=== PATIENT | female | born 1985 | race Caucasian/White ===

== ENCOUNTER 2016-12-05 22:53 | Emergency (ER) | payer SELFPAY ==
[~2016-12-05] VITALS: Ht 152.4 cm; Wt 57.0 kg
[2016-12-06 06:14] VITALS: BP 122/70
[2016-12-06] MEDS ORDERED: HYDROCODONE/ACETAMINOPHEN 5/325MG TABLET PO ONE (06:15)
== END 2016-12-06 06:28 | disposition home or self-care (01) ==
LOC: ER 22:53
DX: M79.644 Pain in right finger(s) (principal)
CPT/HCPCS: 99283; Z7610